=== PATIENT | female | born 1985 | race Caucasian/White ===

== ENCOUNTER 2017-06-11 13:23 | Day surgery (SDC) | payer OTHER ==
[~2017-06-11] VITALS: Ht 172.7 cm; Wt 69.9 kg
[2017-06-11 14:01] VITALS: BP 108/69; PULSE 73; TEMP 98.1
[2017-06-11] MEDS ORDERED: XANAX 0.5MG0.5 MG PO (14:06)
[2017-06-11] MEDS ORDERED: CELEXA 20MG20 MG/TAB PO (14:06)
[2017-06-11 15:20] VITALS: BP 108/69; PULSE 64
[2017-06-11 15:35] VITALS: BP 98/69; PULSE 66
[2017-06-11 15:45] VITALS: BP 98/62; PULSE 59
== END 2017-06-11 16:00 | disposition home or self-care (01) ==
LOC: SDCO 13:23
DX: Z86.010 Personal history of colon polyps (principal); K64.0 First degree hemorrhoids; R19.5 Other fecal abnormalities; F41.9 Anxiety disorder, unspecified; F32.9 Major depressive disorder, single episode, unspecified; R53.83 Other fatigue; R61 Generalized hyperhidrosis; R19.7 Diarrhea, unspecified
CPT/HCPCS: J2250; J2405; J3010; J7030